=== PATIENT | male | born 1950 | race Caucasian/White ===

== ENCOUNTER → 2017-03-13 | Outpatient (CLI) | payer OTHER ==
[~2017-03-13] MED LIST: ASP81TEC PO; DPAS20025 PO; PNT40TEC PO; SIMV40TA4 PO; SULF1TAB38 PO
[2017-03-13 05:56] LABS: BASOPHILS % (AUTO) 1 % (0-10); EOSINOPHILS # (AUTO) 0.2 10^3/uL (0.0-0.3); EOSINOPHILS % (AUTO) 3 % (0-10); LYMPHOCYTES # (AUTO) 1.6 X 10^3 (1.0-4.0); LYMPHOCYTES % (AUTO) 29 % (12-44); MEAN CORPUSCULAR HEMOGLOBIN 31 PG (25-34); MEAN CORPUSCULAR HGB CONC 35 G/DL (32-36); MEAN CORPUSCULAR VOLUME 88 FL (80-99); MEAN PLATELET VOLUME 10.8 FL (7.4-10.4); MONOCYTES # (AUTO) 0.7 X 10^3 (0.0-1.0); MONOCYTES % (AUTO) 11 % (0-12); NEUTROPHILS # (AUTO) 3.2 X 10^3 (1.8-7.8); NEUTROPHILS % (AUTO) 57 % (42-75); PLATELET COUNT 215 10^3/uL (130-400); RED BLOOD COUNT 4.78 10^6/uL (4.35-5.85); RED CELL DISTRIBUTION WIDTH 13.2 % (10.0-14.5); WHITE BLOOD COUNT 5.7 10^3/uL (4.3-11.0)
[2017-03-13 06:15] LABS: ALANINE AMINOTRANSFERASE 20 U/L (0-55); ALBUMIN 4.2 G/DL (3.2-4.5); ANION GAP 7 MMOL/L (5-14); ASPARTATE AMINO TRANSFERASE 13 U/L (5-34); BILIRUBIN,TOTAL 0.7 MG/DL (0.1-1.0); BLOOD UREA NITROGEN 13 MG/DL (7-18); BUN/CREATININE RATIO 14; CALCIUM 9.4 MG/DL (8.5-10.1); CARBON DIOXIDE 28 MMOL/L (21-32); CHLORIDE 106 MMOL/L (98-107); CHOLESTEROL 207 MG/DL (< 200); CREATININE SERUM 0.96 MG/DL (0.60-1.30); DIRECT LDL 123 MG/DL (1-129); GFR ESTIMATED > 60; GLUCOSE 105 MG/DL (70-105); POTASSIUM 4.6 MMOL/L (3.6-5.0); SODIUM 141 MMOL/L (135-145); TOTAL PROTEIN 6.7 G/DL (6.4-8.2); TRIGLYCERIDES 125 MG/DL (<150); VLDL CHOLESTEROL 25 MG/DL (5-40)
[2017-03-13 06:35] LABS: THYROID STIMULATING HORMONE 3.03 UIU/ML (0.35-4.94)
[2017-03-14 16:08] LABS: MICROALBUMIN/CREATININE RATIO 6.5 mg/gCR (0.0-30.0)
== END ==
LOC: LAB 05:37
PROVIDERS: ATTEND Internal Medicine
DX: Z00.00 Encounter for general adult medical examination without abnormal findings (principal); E29.1 Testicular hypofunction; E11.65 Type 2 diabetes mellitus with hyperglycemia; E78.00 Pure hypercholesterolemia, unspecified; E78.1 Pure hyperglyceridemia
CPT/HCPCS: 36415; 80053; 80061; 82043; 83036; 84403; 84443; 85025

== ENCOUNTER → 2017-05-02 | Outpatient (CLI) | payer OTHER | LOC: LAB 14:51 | PROVIDERS: ATTEND Specialist | DX: Z12.5 Encounter for screening for malignant neoplasm of prostate (principal) | CPT/HCPCS: 36415; 84153 ==

== ENCOUNTER → 2017-06-15 | Outpatient (CLI) | payer OTHER | LOC: LAB 06:43 | PROVIDERS: ATTEND Specialist | DX: R97.20 Elevated prostate specific antigen [PSA] (principal); N52.9 Male erectile dysfunction, unspecified; N40.1 Benign prostatic hyperplasia with lower urinary tract symptoms | CPT/HCPCS: 36415; 84153; 84154 ==

== ENCOUNTER → 2017-09-26 | Outpatient (CLI) | payer OTHER ==
[2017-09-26 06:46] LABS: ALANINE AMINOTRANSFERASE 31 U/L (0-55); ALBUMIN 4.3 GM/DL (3.2-4.5); ANION GAP 12 MMOL/L (5-14); ASPARTATE AMINO TRANSFERASE 23 U/L (5-34); BILIRUBIN,TOTAL 0.7 MG/DL (0.1-1.0); BLOOD UREA NITROGEN 16 MG/DL (7-18); BUN/CREATININE RATIO 19; CALCIUM 9.5 MG/DL (8.5-10.1); CARBON DIOXIDE 24 MMOL/L (21-32); CHLORIDE 105 MMOL/L (98-107); CHOLESTEROL 236 MG/DL (< 200); CREATININE SERUM 0.84 MG/DL (0.60-1.30); DIRECT LDL 155 MG/DL (1-129); GFR ESTIMATED > 60; GLUCOSE 103 MG/DL (70-105); SODIUM 141 MMOL/L (135-145); TOTAL PROTEIN 7.5 GM/DL (6.4-8.2); TRIGLYCERIDES 113 MG/DL (<150); VLDL CHOLESTEROL 23 MG/DL (5-40)
== END ==
LOC: LAB 05:35
PROVIDERS: ATTEND Internal Medicine
DX: E11.65 Type 2 diabetes mellitus with hyperglycemia (principal); E78.00 Pure hypercholesterolemia, unspecified; E78.1 Pure hyperglyceridemia
CPT/HCPCS: 36415; 80053; 80061; 83036

== ENCOUNTER → 2018-06-21 | Outpatient (CLI) | payer OTHER | LOC: LAB 05:35 | PROVIDERS: ATTEND Specialist | DX: R97.20 Elevated prostate specific antigen [PSA] (principal) | CPT/HCPCS: 36415; 84153 ==

== ENCOUNTER → 2018-12-28 | Outpatient (CLI) | payer MEDICARE ==
[2018-12-28 06:18] LABS: BASOPHILS # (AUTO) 0.1 10^3/uL (0.0-0.1); BASOPHILS % (AUTO) 2 % (0-10); EOSINOPHILS # (AUTO) 0.2 10^3/uL (0.0-0.3); EOSINOPHILS % (AUTO) 4 % (0-10); HEMATOCRIT 43 % (40-54); HEMOGLOBIN 14.5 G/DL (13.3-17.7); LYMPHOCYTES # (AUTO) 1.4 X 10^3 (1.0-4.0); LYMPHOCYTES % (AUTO) 32 % (12-44); MEAN CORPUSCULAR HEMOGLOBIN 29 PG (25-34); MEAN CORPUSCULAR HGB CONC 34 G/DL (32-36); MEAN CORPUSCULAR VOLUME 87 FL (80-99); MEAN PLATELET VOLUME 10.6 FL (7.4-10.4); MONOCYTES # (AUTO) 0.5 X 10^3 (0.0-1.0); MONOCYTES % (AUTO) 13 % (0-12); NEUTROPHILS # (AUTO) 2.2 X 10^3 (1.8-7.8); NEUTROPHILS % (AUTO) 51 % (42-75); PLATELET COUNT 222 10^3/uL (130-400); RED CELL DISTRIBUTION WIDTH 13.9 % (10.0-14.5); WHITE BLOOD COUNT 4.3 10^3/uL (4.3-11.0)
[2018-12-28 06:40] LABS: ALANINE AMINOTRANSFERASE 26 U/L (0-55); ALBUMIN 4.3 GM/DL (3.2-4.5); ALKALINE PHOSPHATASE 51 U/L (40-136); BILIRUBIN,TOTAL 0.6 MG/DL (0.1-1.0); BUN/CREATININE RATIO 19; CALCIUM 9.7 MG/DL (8.5-10.1); CARBON DIOXIDE 27 MMOL/L (21-32); CHLORIDE 107 MMOL/L (98-107); CHOLESTEROL 210 MG/DL (< 200); CREATININE SERUM 0.96 MG/DL (0.60-1.30); GFR ESTIMATED > 60; GLUCOSE 113 MG/DL (70-105); POTASSIUM 4.2 MMOL/L (3.6-5.0); SODIUM 140 MMOL/L (135-145); TOTAL PROTEIN 6.8 GM/DL (6.4-8.2); TRIGLYCERIDES 69 MG/DL (<150); VLDL CHOLESTEROL 14 MG/DL (5-40)
[2018-12-28 07:39] LABS: HDL CHOLESTEROL 62 MG/DL (40-60)
== END ==
LOC: LAB 05:58
PROVIDERS: ATTEND Specialist
DX: E11.65 Type 2 diabetes mellitus with hyperglycemia (principal); N40.1 Benign prostatic hyperplasia with lower urinary tract symptoms; N52.9 Male erectile dysfunction, unspecified; R97.20 Elevated prostate specific antigen [PSA]; E78.00 Pure hypercholesterolemia, unspecified; E78.1 Pure hyperglyceridemia
CPT/HCPCS: 36415; 80053; 80061; 82043; 82570; 83036; 84153; 84443; 85025

== ENCOUNTER 2019-07-02 19:16 | Emergency (ER) | payer MEDICARE ==
[~2019-07-02] VITALS: Ht 175.3 cm; Wt 81.6 kg
[~2019-07-02 19:16] MED LIST changes: -AMOX-358 PO
--- NOTE | 2019-07-02 19:35 | ED Integumentary General ---
General Chief Complaint: Bite-Animal/Human/Insect Stated Complaint: L LEG DOG BITE Nursing Triage Note: was riding his bike when a dog started running at him, tried to kick the dog and fell off of his bike causing an abrasion to his R knee, dog did bite him on the back of L lower leg Source: patient Exam Limitations: no limitations History of Present Illness Date Seen by Provider: Jul 02, 2019 Time Seen by Provider: 19:33 Initial Comments To ER with a dog bite to the posterior left calf. He fell off his bike and now has an abrasion to the right knee. Tetanus is not up-to-date. Timing/Duration: just prior to arrival Severity: moderate Location: extremities Associated Symptoms: denies symptoms Allergies and Home Medications Allergies Coded Allergies: No Known Drug Allergies (Verified , 09/25/08) Home Medications Aspirin 81 Mg Tabec, 81 MG PO DAILY, (Reported) Dipyridamole/Aspirin 1 Ea Cap, 1 EA PO BID, (Reported) Pantoprazole Sodium 40 Mg Tablet.dr, 1 TAB PO DAILY, (Reported) Patient Home Medication List Home Medication List Reviewed: Yes Review of Systems Review of Systems Constitutional: see HPI EENTM: see HPI Respiratory: no symptoms reported Cardiovascular: no symptoms reported Genitourinary: no symptoms reported Musculoskeletal: see HPI Skin: see HPI Psychiatric/Neurological: No Symptoms Reported Endocrine: No Symptoms Reported Past Zvjyafz-Cfznvi-Lddnlh Hx Patient Social History Alcohol Use: Denies Use Recreational Drug Use: No 2nd Hand Smoke Exposure: No Recent Foreign Travel: No Contact w/Someone Who Travel: No Recent Infectious Disease Expo: Yes Recent Hopitalizations: No Past Medical History Surgeries: Yes (FOR BROKEN NOSE AND BROKEN FOOT) Respiratory: No Cardiac: No Neurological: No Reproductive Disorders: No Gastrointestinal: No Musculoskeletal: No Endocrine: No Psychosocial: No Blood Disorders: No Physical Exam Vital Signs Vital Signs - First Documented 07/02/19 19:26 Temp 99.7 Pulse 96 Resp 18 B/P (MAP) 155/85 (108) Capillary Refill : Less Than 3 Seconds General Appearance: WD/WN, no apparent distress Respiratory: no respiratory distress, no accessory muscle use Gastrointestinal: normal bowel sounds, non tender Neurologic/Psychiatric: alert, normal mood/affect, oriented x 3 Skin: normal color, warm/dry Skin Problem Location: lower extremities Skin Problem Character: other Lymphatic: other (there is a small superficial abrasion linear in nature to the posterior lateral left calf that measures 1.5 cm and does not require primary closure. There is a puncture wound just medial to this.) Progress/Results/Core Measures Results/Orders My Orders Orders - JESSE RABAGO APRN Dipht,Pertuss(Acell),Tet Adult (Boostrix (07/02/19 19:45) Amoxicillin/Clavulanate Tablet (Augmenti (07/02/19 19:45) Vital Signs/I&O 07/02/19 19:26 Temp 99.7 Pulse 96 Resp 18 B/P (MAP) 155/85 (108) Blood Pressure Mean: 108 Departure Communication (Admissions) Patient had called [place] [employer] prior to his arrival to the emergency room. They then arrived in the emergency room a photo of the bite wound. 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 They state that animal control has been out there a few times already and they are familiar with this dog. Impression Primary Impression: Dog bite Qualified Codes: W54.0XXA - Bitten by dog, initial encounter Disposition: 01 HOME, SELF-CARE Condition: Stable Departure-Patient Inst. Decision time for Depature: 19:36 Referrals: KALPANA LAWTON DO (PCP/Family) Primary Care Physician Patient Instructions: Animal Bites (DC) Add. Discharge Instructions: 1. Return to ER for any concerns 2. Call [place] [employer] tomorrow to speak with animal control and discussed the rabies vaccination status of nausea. If the dog is vaccinated, no worries, if it is not vaccinated animal control will guide you on the next steps to take as the dog will be quarantined for 10 days. Take antibiotics as directed for the bite wound. All discharge instructions reviewed with patient and/or family. Voiced understanding. Scripts Amoxicillin/Potassium Clav (Augmentin [id number] Tablet) 1 Each Tablet 1 EACH PO BID, #10 TAB 0 Refills Prov: JESSE RABAGO APRN 07/02/19 JESSE RABAGO APRN Jul 02, 2019 19:35
[2019-07-02] MEDS ORDERED: AMOX-358 PO (19:39)
[2019-07-02] MEDS ORDERED: AUGMENTIN 875 MG TAB (AMOXICILLIN/CLAVULANATE) PO SCH (19:45)
[2019-07-02] MEDS ORDERED: TETANUS,DIPTH,PERTUSS P/F (BOOSTRIX) 0.5 ML VIAL IM ONE (19:45)
[2019-07-02 19:54] VITALS: BP 150/87
== END 2019-07-02 20:01 | disposition home or self-care (01) ==
LOC: EDUNIT# 19:16 → ER 19:18
DX: S81.852A Open bite, left lower leg, initial encounter (principal); Z79.82 Long term (current) use of aspirin; W54.0XXA Bitten by dog, initial encounter
CPT/HCPCS: 90715; 99284

== ENCOUNTER → 2019-07-02 | Outpatient (CLI) | payer MEDICARE ==
[~2019-07-02] MED LIST changes: +AMOX-358 PO
== END ==
LOC: LAB 13:34
PROVIDERS: ATTEND Specialist
DX: N40.1 Benign prostatic hyperplasia with lower urinary tract symptoms (principal); N52.9 Male erectile dysfunction, unspecified; R97.20 Elevated prostate specific antigen [PSA]
CPT/HCPCS: 36415; 84153

== ENCOUNTER → 2019-08-16 | Outpatient (CLI) | payer MEDICARE ==
[~2019-08-16] MED LIST changes: +AMOX-358 PO
[2019-08-16 06:45] LABS: BASOPHILS # (AUTO) 0.1 10^3/uL (0.0-0.1); BASOPHILS % (AUTO) 1 % (0-10); EOSINOPHILS # (AUTO) 0.1 10^3/uL (0.0-0.3); EOSINOPHILS % (AUTO) 2 % (0-10); HEMATOCRIT 44 % (40-54); HEMOGLOBIN 15.3 G/DL (13.3-17.7); LYMPHOCYTES # (AUTO) 1.3 X 10^3 (1.0-4.0); LYMPHOCYTES % (AUTO) 27 % (12-44); MEAN CORPUSCULAR HEMOGLOBIN 30 PG (25-34); MEAN CORPUSCULAR HGB CONC 35 G/DL (32-36); MEAN CORPUSCULAR VOLUME 87 FL (80-99); MEAN PLATELET VOLUME 10.1 FL (7.4-10.4); MONOCYTES # (AUTO) 0.5 X 10^3 (0.0-1.0); MONOCYTES % (AUTO) 11 % (0-12); NEUTROPHILS # (AUTO) 2.8 X 10^3 (1.8-7.8); NEUTROPHILS % (AUTO) 58 % (42-75); PLATELET COUNT 270 10^3/uL (130-400); RED CELL DISTRIBUTION WIDTH 13.2 % (10.0-14.5); WHITE BLOOD COUNT 4.8 10^3/uL (4.3-11.0)
[2019-08-16 07:07] LABS: ALANINE AMINOTRANSFERASE 23 U/L (0-55); ALBUMIN 4.4 GM/DL (3.2-4.5); ALKALINE PHOSPHATASE 65 U/L (40-136); BILIRUBIN,TOTAL 0.3 MG/DL (0.1-1.0); BUN/CREATININE RATIO 23; CALCIUM 9.7 MG/DL (8.5-10.1); CARBON DIOXIDE 25 MMOL/L (21-32); CHLORIDE 106 MMOL/L (98-107); CHOLESTEROL 211 MG/DL (< 200); GFR ESTIMATED > 60; GLUCOSE 109 MG/DL (70-105); HDL CHOLESTEROL 61 MG/DL (40-60); POTASSIUM 4.4 MMOL/L (3.6-5.0); SODIUM 141 MMOL/L (135-145); TOTAL PROTEIN 7.5 GM/DL (6.4-8.2); TRIGLYCERIDES 53 MG/DL (<150); VLDL CHOLESTEROL 11 MG/DL (5-40)
== END ==
LOC: LAB 06:19
PROVIDERS: ATTEND Internal Medicine
DX: Z00.00 Encounter for general adult medical examination without abnormal findings (principal); E11.65 Type 2 diabetes mellitus with hyperglycemia; E78.1 Pure hyperglyceridemia; E78.00 Pure hypercholesterolemia, unspecified
CPT/HCPCS: 36415; 80053; 80061; 82043; 83036; 84443; 85025

== ENCOUNTER → 2020-08-10 | Outpatient (CLI) | payer MEDICARE ==
[2020-08-10 05:50] LABS: BASOPHILS # (AUTO) 0.1 10^3/uL (0.0-0.1); BASOPHILS % (AUTO) 1 % (0-10); EOSINOPHILS # (AUTO) 0.1 10^3/uL (0.0-0.3); EOSINOPHILS % (AUTO) 3 % (0-10); HEMATOCRIT 43 % (40-54); HEMOGLOBIN 14.5 g/dL (13.3-17.7); LYMPHOCYTES # (AUTO) 1.3 10^3/uL (1.0-4.0); LYMPHOCYTES % (AUTO) 32 % (12-44); MEAN CORPUSCULAR HEMOGLOBIN 30 pg (25-34); MEAN CORPUSCULAR HGB CONC 34 g/dL (32-36); MEAN CORPUSCULAR VOLUME 89 fL (80-99); MEAN PLATELET VOLUME 10.2 fL (9.0-12.2); MONOCYTES # (AUTO) 0.5 10^3/uL (0.0-1.0); MONOCYTES % (AUTO) 11 % (0-12); NEUTROPHILS # (AUTO) 2.2 10^3/uL (1.8-7.8); NEUTROPHILS % (AUTO) 53 % (42-75); PLATELET COUNT 228 10^3/uL (130-400); WHITE BLOOD COUNT 4.2 10^3/uL (4.3-11.0)
[2020-08-10 06:02] LABS: ALBUMIN 4.3 GM/DL (3.2-4.5); CHLORIDE 105 MMOL/L (98-107); POTASSIUM 4.5 MMOL/L (3.6-5.0); SODIUM 139 MMOL/L (135-145)
[2020-08-10 06:04] LABS: CALCIUM 9.2 MG/DL (8.5-10.1)
[2020-08-10 06:05] LABS: GLUCOSE 109 MG/DL (70-105)
[2020-08-10 06:06] LABS: CARBON DIOXIDE 25 MMOL/L (21-32)
[2020-08-10 06:07] LABS: BILIRUBIN,TOTAL 0.7 MG/DL (0.1-1.0)
[2020-08-10 06:08] LABS: ALKALINE PHOSPHATASE 67 U/L (40-136); CREATININE SERUM 0.89 MG/DL (0.60-1.30); GFR ESTIMATED > 60
[2020-08-10 06:10] LABS: BUN/CREATININE RATIO 20
[2020-08-10 06:11] LABS: ALANINE AMINOTRANSFERASE 21 U/L (0-55)
[2020-08-13 11:53] LABS: CHOLESTEROL 229 MG/DL (< 200); HDL CHOLESTEROL 73 MG/DL (40-60); TRIGLYCERIDES 99 MG/DL (<150); VLDL CHOLESTEROL 20 MG/DL (5-40)
== END ==
LOC: LAB 05:21
PROVIDERS: ATTEND Internal Medicine
DX: Z13.6 Encounter for screening for cardiovascular disorders (principal); I10 Essential (primary) hypertension; E11.65 Type 2 diabetes mellitus with hyperglycemia; E29.1 Testicular hypofunction
CPT/HCPCS: 36415; 80053; 80061; 82043; 83036; 84403; 84443; 85025

== ENCOUNTER → 2020-08-10 | Outpatient (CLI) | payer MEDICARE | LOC: LAB 05:14 | PROVIDERS: ATTEND Specialist | DX: N40.1 Benign prostatic hyperplasia with lower urinary tract symptoms (principal); R97.20 Elevated prostate specific antigen [PSA] | CPT/HCPCS: 36415; 84153 ==

== ENCOUNTER → 2021-07-22 | Outpatient (CLI) | payer MEDICARE | LOC: LAB 05:50 | PROVIDERS: ATTEND Specialist | DX: N40.1 Benign prostatic hyperplasia with lower urinary tract symptoms (principal); R97.20 Elevated prostate specific antigen [PSA] | CPT/HCPCS: 36415; 84153 ==

== ENCOUNTER → 2021-08-11 | Outpatient (CLI) | payer MEDICARE ==
[2021-08-11 06:23] LABS: BASOPHILS # (AUTO) 0.1 10^3/uL (0.0-0.1); BASOPHILS % (AUTO) 2 % (0-10); EOSINOPHILS # (AUTO) 0.1 10^3/uL (0.0-0.3); EOSINOPHILS % (AUTO) 2 % (0-10); HEMATOCRIT 42 % (40-54); HEMOGLOBIN 14.5 g/dL (13.3-17.7); LYMPHOCYTES # (AUTO) 1.1 10^3/uL (1.0-4.0); LYMPHOCYTES % (AUTO) 21 % (12-44); MEAN CORPUSCULAR HEMOGLOBIN 30 pg (25-34); MEAN CORPUSCULAR HGB CONC 34 g/dL (32-36); MEAN CORPUSCULAR VOLUME 89 fL (80-99); MEAN PLATELET VOLUME 10.1 fL (9.0-12.2); MONOCYTES # (AUTO) 0.6 10^3/uL (0.0-1.0); MONOCYTES % (AUTO) 12 % (0-12); NEUTROPHILS # (AUTO) 3.3 10^3/uL (1.8-7.8); NEUTROPHILS % (AUTO) 63 % (42-75); PLATELET COUNT 276 10^3/uL (130-400); WHITE BLOOD COUNT 5.3 10^3/uL (4.3-11.0)
[2021-08-11 06:39] LABS: ALBUMIN 4.2 GM/DL (3.2-4.5); POTASSIUM 4.1 MMOL/L (3.6-5.0)
[2021-08-11 06:41] LABS: TOTAL PROTEIN 7.2 GM/DL (6.4-8.2)
[2021-08-11 06:43] LABS: BILIRUBIN,TOTAL 0.4 MG/DL (0.1-1.0)
[2021-08-11 06:45] LABS: CREATININE SERUM 0.88 MG/DL (0.60-1.30)
== END ==
LOC: LAB 05:56
PROVIDERS: ATTEND Internal Medicine
DX: E11.65 Type 2 diabetes mellitus with hyperglycemia (principal); I10 Essential (primary) hypertension; Z13.6 Encounter for screening for cardiovascular disorders
CPT/HCPCS: 36415; 80053; 80061; 83036; 84443; 85025

== ENCOUNTER → 2022-08-08 | Outpatient (CLI) | payer MEDICARE ==
[~2022-08-08] MED LIST changes: +CIPR500T5 PO
[2022-08-08 07:26] LABS: BASOPHILS # (AUTO) 0.1 10^3/uL (0.0-0.1); BASOPHILS % (AUTO) 2 % (0-10); EOSINOPHILS # (AUTO) 0.2 10^3/uL (0.0-0.3); EOSINOPHILS % (AUTO) 4 % (0-10); HEMATOCRIT 42 % (40-54); HEMOGLOBIN 14.4 g/dL (13.3-17.7); LYMPHOCYTES # (AUTO) 1.4 10^3/uL (1.0-4.0); LYMPHOCYTES % (AUTO) 30 % (12-44); MEAN CORPUSCULAR HEMOGLOBIN 30 pg (25-34); MEAN CORPUSCULAR HGB CONC 34 g/dL (32-36); MEAN CORPUSCULAR VOLUME 88 fL (80-99); MEAN PLATELET VOLUME 11.1 fL (9.0-12.2); MONOCYTES # (AUTO) 0.4 10^3/uL (0.0-1.0); MONOCYTES % (AUTO) 10 % (0-12); NEUTROPHILS # (AUTO) 2.5 10^3/uL (1.8-7.8); NEUTROPHILS % (AUTO) 54 % (42-75); PLATELET COUNT 181 10^3/uL (130-400); WHITE BLOOD COUNT 4.6 10^3/uL (4.3-11.0)
[2022-08-08 07:47] LABS: ALBUMIN 4.4 GM/DL (3.2-4.5); BILIRUBIN,TOTAL 0.8 MG/DL (0.1-1.0); CALCIUM 9.5 MG/DL (8.5-10.1); CREATININE SERUM 1.3 MG/DL (0.60-1.30); POTASSIUM 3.8 MMOL/L (3.6-5.0); TOTAL PROTEIN 7.4 GM/DL (6.4-8.2)
== END ==
LOC: LAB 07:03
PROVIDERS: ATTEND Internal Medicine
DX: Z13.6 Encounter for screening for cardiovascular disorders (principal); E11.65 Type 2 diabetes mellitus with hyperglycemia; I10 Essential (primary) hypertension
CPT/HCPCS: 36415; 80053; 80061; 83036; 84443; 85025

== ENCOUNTER → 2023-02-14 | Outpatient (CLI) | payer MEDICARE ==
[2023-02-14 06:37] LABS: BASOPHILS # (AUTO) 0.1 10^3/uL (0.0-0.1); BASOPHILS % (AUTO) 2 % (0-10); EOSINOPHILS # (AUTO) 0.3 10^3/uL (0.0-0.3); EOSINOPHILS % (AUTO) 6 % (0-10); HEMATOCRIT 41 % (40-54); HEMOGLOBIN 14.2 g/dL (13.3-17.7); LYMPHOCYTES # (AUTO) 1.2 10^3/uL (1.0-4.0); LYMPHOCYTES % (AUTO) 22 % (12-44); MEAN CORPUSCULAR HEMOGLOBIN 30 pg (25-34); MEAN CORPUSCULAR HGB CONC 34 g/dL (32-36); MEAN CORPUSCULAR VOLUME 88 fL (80-99); MEAN PLATELET VOLUME 9.9 fL (9.0-12.2); MONOCYTES # (AUTO) 0.6 10^3/uL (0.0-1.0); MONOCYTES % (AUTO) 11 % (0-12); NEUTROPHILS # (AUTO) 3.2 10^3/uL (1.8-7.8); NEUTROPHILS % (AUTO) 60 % (42-75); PLATELET COUNT 235 10^3/uL (130-400); WHITE BLOOD COUNT 5.4 10^3/uL (4.3-11.0)
[2023-02-14 06:44] LABS: POTASSIUM 4.4 MMOL/L (3.6-5.0)
[2023-02-14 06:45] LABS: CALCIUM 9.1 MG/DL (8.5-10.1)
[2023-02-14 06:47] LABS: PROTHROMBIN TIME PATIENT 13.5 SEC (12.2-14.7)
[2023-02-14 06:50] LABS: CREATININE SERUM 1.42 MG/DL (0.60-1.30)
[2023-02-14 07:01] LABS: EOSINOPHILS % (MANUAL) 6 %; LYMPHOCYTES % (MANUAL) 20 %; MONOCYTES % (MANUAL) 8 %; NEUTROPHILS % (MANUAL) 66 %; RBC MORPH NORMAL
== END ==
LOC: LAB 06:20
DX: C67.8 Malignant neoplasm of overlapping sites of bladder (principal)
CPT/HCPCS: 36415; 80048; 85007; 85027; 85610

== ENCOUNTER → 2023-10-05 | Outpatient (RCR) | payer MEDICARE | END | disposition home or self-care (01) | PROVIDERS: ATTEND Internal Medicine | DX: M54.9 Dorsalgia, unspecified (principal) ==